=== PATIENT | female | born 1970 | race Native Hawaiian/Other Pacific Islander ===

== ENCOUNTER 2018-09-13 21:47 | Emergency (ER) | payer OTHER ==
[~2018-09-13] VITALS: Ht 149.9 cm; Wt 78.0 kg
[~2018-09-13 21:47] MED LIST: ALPR0.5T24 PO; CLARITIN10 M1 PO; FLUT0.05 NAS; LAMICTAL100 MG PO; TRAZ100T PO
[2018-09-13 23:18] VITALS: BP 112/68; TEMP 98.8
== END 2018-09-13 23:19 | disposition home or self-care (01) ==
LOC: ED 21:47
PROC: 0HQGXZZ Repair Left Hand Skin, External Approach (ICD-10-PCS; principal; 2018-09-13)
DX: S61.211A Laceration without foreign body of left index finger without damage to nail, initial encounter (principal); W26.0XXA Contact with knife, initial encounter
CPT/HCPCS: 90471; 90715; 99283

== ENCOUNTER 2018-11-24 17:12 | Outpatient (CLI) | payer OTHER | END 2018-11-24 23:22 | disposition home or self-care (01) | LOC: RAD 17:12 | DX: M54.5 Low back pain (principal); R06.2 Wheezing ==

== ENCOUNTER 2019-09-30 23:20 | Emergency (ER) | payer OTHER ==
[~2019-09-30] VITALS: Ht 149.9 cm; Wt 78.0 kg
[2019-10-01] MEDS ORDERED: CEPHALEXIN500 MG PO (00:59)
[2019-10-01 01:21] VITALS: BP 118/72; TEMP 98.2
== END 2019-10-01 01:22 | disposition home or self-care (01) ==
LOC: ED 23:20
PROC: 0HQFXZZ Repair Right Hand Skin, External Approach (ICD-10-PCS; principal; 2019-10-01)
DX: S61.210A Laceration without foreign body of right index finger without damage to nail, initial encounter (principal); W26.0XXA Contact with knife, initial encounter; Y93.89 Activity, other specified; Y92.89 Other specified places as the place of occurrence of the external cause
CPT/HCPCS: 90471; 90715; 99283

== ENCOUNTER 2019-10-06 15:20 | Outpatient (CLI) | payer OTHER ==
[~2019-10-06 15:20] MED LIST changes: +CEPHALEXIN500 MG PO
== END 2019-10-06 20:29 | disposition home or self-care (01) ==
LOC: RAD 15:20
DX: S61.210A Laceration without foreign body of right index finger without damage to nail, initial encounter (principal)

== ENCOUNTER 2021-06-18 10:54 | Outpatient (CLI) | payer OTHER | END 2021-06-18 18:58 | disposition home or self-care (01) | LOC: RAD 10:54 | PROVIDERS: ATTEND Nurse Practitioner Family | DX: K59.00 Constipation, unspecified (principal); R11.2 Nausea with vomiting, unspecified ==

== ENCOUNTER 2021-09-20 10:56 | Outpatient (CLI) | payer OTHER | END 2021-09-20 20:36 | disposition home or self-care (01) | LOC: MRI 10:56 | PROVIDERS: ATTEND Physician Assistant | DX: S83.231A Complex tear of medial meniscus, current injury, right knee, initial encounter (principal); Y92.89 Other specified places as the place of occurrence of the external cause ==

== ENCOUNTER 2021-11-13 11:48 | Outpatient (CLI) | payer OTHER | END 2021-11-13 19:01 | disposition home or self-care (01) | LOC: US 11:48 | PROVIDERS: ATTEND Nurse Practitioner Family | DX: R11.2 Nausea with vomiting, unspecified (principal); R10.11 Right upper quadrant pain; K21.9 Gastro-esophageal reflux disease without esophagitis; R10.13 Epigastric pain ==

== ENCOUNTER 2022-01-07 08:03 | Outpatient (CLI) | payer OTHER | END 2022-01-07 20:40 | disposition home or self-care (01) | LOC: NM 08:03 | PROVIDERS: ATTEND Internal Medicine Gastroenterology | DX: N64.89 Other specified disorders of breast (principal); J32.9 Chronic sinusitis, unspecified; R51.9 Headache, unspecified; N63.10 Unspecified lump in the right breast, unspecified quadrant; R11.2 Nausea with vomiting, unspecified | CPT/HCPCS: A9541; G0279 ==

== ENCOUNTER 2022-01-15 00:47 | Emergency (ER) | payer OTHER ==
[~2022-01-15] VITALS: Ht 149.9 cm; Wt 81.6 kg
[2022-01-15 00:50] VITALS: TEMP 97.5
[2022-01-15 01:45] LABS: PLATELET COUNT 293 K/uL (152-353)
[2022-01-15 02:31] LABS: POTASSIUM 3.7 mmol/L (3.6-5.2); SODIUM 138 mmol/L (136-145)
[2022-01-15 04:40] VITALS: BP 115/60
== END 2022-01-15 04:40 | disposition home or self-care (01) ==
LOC: ED 00:47
PROVIDERS: Emergency Medicine Emergency Medical Services
DX: S00.83XA Contusion of other part of head, initial encounter (principal); S20.211A Contusion of right front wall of thorax, initial encounter; J32.8 Other chronic sinusitis; V89.2XXA Person injured in unspecified motor-vehicle accident, traffic, initial encounter; Y92.89 Other specified places as the place of occurrence of the external cause; F17.210 Nicotine dependence, cigarettes, uncomplicated
CPT/HCPCS: 36415; 80048; 80307; 80320; 82150; 83690; 84484; 85027; 93005; 96360; 96361; 96365; 99284; J0696; Q9963